=== PATIENT | male | born 1945 | race Caucasian/White ===

== ENCOUNTER 2017-05-02 11:09 | Outpatient (CLI) | payer MEDICARE, OTHER ==
[2017-05-02 18:35] LABS: ALBUMIN/GLOBULIN RATIO 1.4 (1.0-2.2); BILIRUBIN,TOTAL 0.8 mg/dL (0.2-1.0); CALCIUM 9.1 mg/dL (8.5-10.3); CREATININE 0.9 mg/dL (0.6-1.2); POTASSIUM 4.1 mmol/L (3.5-5.0); TOTAL PROTEIN 7.1 g/dL (6.7-8.2)
[2017-05-02 18:38] LABS: BASOPHILS # (AUTO) 0.1 10^3/uL (0.0-0.1); BASOPHILS % (AUTO) 1.2 %; EOSINOPHILS # (AUTO) 0.3 10^3/uL (0.0-0.7); HCT - HEMATOCRIT 45.3 % (42.0-52.0); HGB - HEMOGLOBIN 15.6 g/dL (14.0-18.0); MEAN CORPUSCULAR HEMOGLOBIN 32.7 pg (27.0-31.0); MEAN CORPUSCULAR HGB CONC 34.4 g/dL (32.0-36.0); MEAN CORPUSCULAR VOLUME 95.1 fL (80.0-94.0); MEAN PLATELET VOLUME 8.5 fL (7.4-11.4); MONOCYTES # (AUTO) 0.7 10^3/uL (0.0-1.0); MONOCYTES % (AUTO) 9.7 %; NEUTROPHILS # (AUTO) 4.8 10^3/uL (1.5-6.6); NEUTROPHILS % (AUTO) 69.1 %; NUCLEATED RED BLOOD CELLS AUTO 0.2 /100WBC; RED BLOOD COUNT 4.77 10^6/uL (4.70-6.10); RED CELL DISTRIBUTION WIDTH 13.2 % (12.0-15.0); UNCORRECTED WHITE BLOOD COUNT 6.9 x10^3/uL; WHITE BLOOD COUNT 6.9 x10^3/uL (4.8-10.8)
[2017-05-02 18:59] LABS: THYROID STIMULATING HORMONE 8.56 uIU/mL (0.34-5.60)
== END 2017-05-02 11:10 | disposition home or self-care (01) ==
LOC: LAB.F 11:09
PROVIDERS: ATTEND Family Medicine
DX: R53.83 Other fatigue (principal)
CPT/HCPCS: 36415; 80053; 84439; 84443; 84481; 85025

== ENCOUNTER 2017-06-21 11:25 | Outpatient (CLI) | payer MEDICARE, OTHER ==
[2017-06-21 19:05] LABS: THYROID STIMULATING HORMONE 3.15 uIU/mL (0.34-5.60)
== END 2017-06-21 11:26 | disposition home or self-care (01) ==
LOC: LAB.F 11:25
PROVIDERS: ATTEND Family Medicine
DX: E03.9 Hypothyroidism, unspecified (principal)
CPT/HCPCS: 36415; 84439; 84443; 84481

== ENCOUNTER 2018-06-04 12:52 | Outpatient (CLI) | payer MEDICARE, OTHER ==
[2018-06-04 17:48] LABS: BASOPHILS # (AUTO) 0.1 10^3/uL (0.0-0.1); BASOPHILS % (AUTO) 1.1 %; EOSINOPHILS # (AUTO) 0.2 10^3/uL (0.0-0.7); HGB - HEMOGLOBIN 14.6 g/dL (14.0-18.0); LYMPHOCYTES # (AUTO) 1.4 10^3/uL (1.5-3.5); MEAN CORPUSCULAR HEMOGLOBIN 32.7 pg (27.0-31.0); MEAN CORPUSCULAR HGB CONC 33.7 g/dL (32.0-36.0); MEAN CORPUSCULAR VOLUME 96.9 fL (80.0-94.0); MEAN PLATELET VOLUME 8.1 fL (7.4-11.4); MONOCYTES # (AUTO) 0.9 10^3/uL (0.0-1.0); MONOCYTES % (AUTO) 10.6 %; NEUTROPHILS # (AUTO) 5.4 10^3/uL (1.5-6.6); NEUTROPHILS % (AUTO) 67.3 %; PLT - PLATELET COUNT 206 10^3/uL (130-450); RED BLOOD COUNT 4.48 10^6/uL (4.70-6.10)
[2018-06-04 18:49] LABS: ALBUMIN 4.4 g/dL (3.2-5.5); ALBUMIN/GLOBULIN RATIO 1.5 (1.0-2.2); BILIRUBIN,TOTAL 0.8 mg/dL (0.2-1.0); CALCIUM 9.2 mg/dL (8.5-10.3); CREATININE 0.9 mg/dL (0.6-1.2); TOTAL PROTEIN 7.4 g/dL (6.7-8.2)
== END 2018-06-04 12:53 | disposition home or self-care (01) ==
LOC: LAB.F 12:52
PROVIDERS: ATTEND Physician Assistant Medical
DX: R06.02 Shortness of breath (principal); E03.9 Hypothyroidism, unspecified; Z79.899 Other long term (current) drug therapy
CPT/HCPCS: 36415; 80053; 84443; 85025

== ENCOUNTER 2018-06-11 08:56 | Outpatient (CLI) | payer MEDICARE, OTHER | END 2018-06-11 08:57 | disposition home or self-care (01) | LOC: RT 08:56 | PROVIDERS: ATTEND Physician Assistant Medical | DX: R06.02 Shortness of breath (principal) | CPT/HCPCS: 94010; 94729 ==

== ENCOUNTER 2018-06-20 12:16 | Outpatient (CLI) | payer MEDICARE, OTHER ==
[2018-06-20 14:52] VITALS: BP 146/84
--- NOTE | 2018-06-20 16:27 | CARDIAC PROCEDURE NOTE ---
DATE OF SERVICE: 06/20/2018 Physician: MOUSTAPHA Goldberg PRIMARY CARE PROVIDER: Judy Garrett PA-C PROCEDURE: Stress echocardiogram. SYMPTOMS: Dyspnea on exertion. CARDIAC RISK FACTORS: Age, hyperlipidemia. No previous cardiac procedures. CLINICAL HISTORY: A 73-year-old male without known coronary artery disease. He has no symptoms toda y. VITAL SIGNS: BP 132/86, heart rate 54, height 70 inches, weight 194 pounds, BMI 27.94. PROCEDURE AND FINDINGS: The patient's ID and date were verified and consent signed. After res ting echocardiogram images, the patient performed treadmill exercise using a Joshua protocol, completi ng 4 minutes 37 seconds and an estimated workload of 7.05 metabolic equivalents. Maximal blood press ure was 220/90 and maximal heart rate was 133 or 91% maximal predicted heart rate for age. The blood pressure response was hypertensive. The patient stopped because he was breathless. The resting ECG demonstrated normal sinus rhythm with no abnormalities. Maximal ST segment depression was less than 0.5 mm and upsloping. He had 1 PAC and 1 PVC. FINAL IMPRESSION 1. No evidence of ischemia by electrocardiographic criteria. 2. No chest pain to suggest angina. 3. Rare ectopy. 4. Following exercise, further echocardiogram images were obtained. See echocardiogram report. TD: 06/20/2018 13:53
== END 2018-06-20 12:17 | disposition home or self-care (01) ==
LOC: DI 12:16
PROVIDERS: ATTEND Physician Assistant Medical
DX: R06.09 Other forms of dyspnea (principal)
CPT/HCPCS: 93351

== ENCOUNTER 2019-07-01 10:29 | Outpatient (CLI) | payer MEDICARE, OTHER ==
[2019-07-01 17:24] LABS: CALCIUM 9.8 mg/dL (8.5-10.3); CREATININE 0.9 mg/dL (0.6-1.2)
== END 2019-07-01 10:30 | disposition home or self-care (01) ==
LOC: LAB.S 10:29
PROVIDERS: ATTEND Physician Assistant Medical
DX: Z51.81 Encounter for therapeutic drug level monitoring (principal); Z12.5 Encounter for screening for malignant neoplasm of prostate; Z79.899 Other long term (current) drug therapy
CPT/HCPCS: 36415; 80048; 84443; G0103; 84153